=== PATIENT | female | born 1990 | race Caucasian/White ===

== ENCOUNTER 2016-12-29 14:27 | Emergency (ER) | payer OTHER ==
[~2016-12-29] VITALS: Ht 162.6 cm; Wt 63.6 kg
[2016-12-29 14:40] VITALS: BP 118/71
--- NOTE | 2016-12-29 15:45 | NUR ---
Patient ambulated to bed 6. RN evaluating patient at bedside.
--- NOTE | 2016-12-29 15:46 | NUR ---
26/F BIB SELF c/o umbilical region sharp/burning pain x yesterday non radiating water stools today, > 10 episodes and nausea as per pt. also c/o left ankle pain x1 wk, no recent injury. hx OF left ankle fx repair 2007 . SKIN IS PINK/WARM/DRY; AAOX4 WITH EVEN AND STEADY GAIT; LUNGS CLEAR BL; HR EVEN AND REGULAR; PT DENIES ANY FEVER, CP, SOB, OR COUGH AT THIS TIME; PATIENT STATES PAIN OF 8/10 AT THIS TIME; VSS; PATIENT POSITIONED FOR COMFORT; HOB ELEVATED; BEDRAILS UP X2; BED DOWN. ER MD MADE AWARE OF PT STATUS.
--- NOTE | 2016-12-29 15:47 | NUR ---
Dr. Gonzalez evaluating patient at bedside.
[2016-12-29] MEDS ORDERED: ONDANSETRON 4 MG ODT PO ONE (15:50)
[2016-12-29] MEDS ORDERED: DICYCLOMINE 20 MG/2 ML VIAL IM ONE (15:50)
[2016-12-29 16:18] LABS: ALBUMIN 3.8 g/dL (3.4-5.0); ANION GAP 9.1 (8-16); CALCIUM 8.9 mg/dL (8.5-10.1); CARBON DIOXIDE 29.7 mmol/L (21-32); CREATININE 0.6 mg/dL (0.6-1.3); POTASSIUM 3.8 mmol/L (3.5-5.1); TOTAL BILIRUBIN 0.5 mg/dL (0.0-1.0); TOTAL PROTEIN, SERUM 6.9 g/dL (6.4-8.2)
[2016-12-29 16:46] VITALS: BP 108/75
--- NOTE | 2016-12-29 16:46 | NUR ---
Patient discharged with v/s stable. Written and verbal after care instructions given and explained. Patient alert, oriented and verbalized understanding of instructions. Ambulatory with steady gait. All questions addressed prior to discharge. ID band removed. Patient advised to follow up with PMD. Rx of ELAINE & ROSALIA given. Patient educated on indication of medication including possible reaction and side effects. Opportunity to ask questions provided and answered.
== END 2016-12-29 16:46 | disposition home or self-care (01) ==
LOC: MED 14:27
DX: R10.33 Periumbilical pain (principal); R19.7 Diarrhea, unspecified; R11.0 Nausea
CPT/HCPCS: 36415; 80053; 81025; 83690; 96372; 99284; J0500; S0119

== ENCOUNTER 2019-01-17 16:34 | Emergency (ER) | payer SELFPAY ==
[~2019-01-17] VITALS: Ht 165.1 cm; Wt 71.2 kg
[2019-01-17 16:37] VITALS: BP 95/67
--- NOTE | 2019-01-17 16:55 | NUR ---
28/F c/o rash to hair line x1 day. Patient states she works at [employer] [facility] [facility] [employer] and there have been residents positive for scabies at facility.
[2019-01-17 17:32] VITALS: BP 95/67
--- NOTE | 2019-01-17 17:32 | NUR ---
Patient discharged with v/s stable. Written and verbal after care instructions given and explained. Patient alert, oriented and verbalized understanding of instructions. Ambulatory with steady gait. All questions addressed prior to discharge. ID band removed. Patient advised to follow up with PMD. Rx of Permethrin 5% topical cream given. Patient educated on indication of medication including possible reaction and side effects. Opportunity to ask questions provided and answered.
== END 2019-01-17 17:32 | disposition home or self-care (01) ==
LOC: MED 16:34
DX: R21 Rash and other nonspecific skin eruption (principal); L29.9 Pruritus, unspecified
CPT/HCPCS: 99282

== ENCOUNTER 2019-07-23 11:46 | Emergency (ER) | payer MEDICAID ==
[~2019-07-23] VITALS: Ht 165.1 cm; Wt 71.0 kg
[2019-07-23 11:54] VITALS: BP 130/83
[2019-07-23 12:44] LABS: APPEARANCE,URINE CLEAR (CLEAR); BILIRUBIN,URINE NEGATIVE (NEGATIVE); BLOOD, URINE TRACE-I (NEGATIVE); COLOR,URINE YELLOW (YELLOW); LEUKOCYTE ESTERASE ,URINE NEGATIVE (NEGATIVE); NITRITE, URINE NEGATIVE (NEGATIVE); UGLUCOSE NEGATIVE (NEGATIVE)
[2019-07-23 12:59] LABS: RBC,URINE 0-5 /HPF (0-5); WBC,URINE 0-5 /HPF (0-5)
--- NOTE | 2019-07-23 13:04 | NUR ---
Patient ambulated to bed 4. RN evaluating patient at bedside.
[2019-07-23 13:57] VITALS: BP 130/83
--- NOTE | 2019-07-23 13:58 | NUR ---
Patient discharged with v/s stable. Written and verbal after care instructions given and explained. Patient alert, oriented and verbalized understanding of instructions. Ambulatory with steady gait. All questions addressed prior to discharge. ID band removed. Patient advised to follow up with PMD. Rx of DIFLUCAN/MACROBID/CORTISONE given. Patient educated on indication of medication including possible reaction and side effects. Opportunity to ask questions provided and answered.
== END 2019-07-23 13:58 | disposition home or self-care (01) ==
LOC: MED 11:46
DX: L30.9 Dermatitis, unspecified (principal); N76.0 Acute vaginitis; B37.3 Candidiasis of vulva and vagina; N39.0 Urinary tract infection, site not specified
CPT/HCPCS: 81001; 81002; 81025; 99283

== ENCOUNTER 2020-01-29 19:10 | Emergency (ER) | payer SELFPAY ==
[~2020-01-29] VITALS: Ht 165.1 cm; Wt 76.2 kg
[2020-01-29 19:14] VITALS: BP 127/93
--- NOTE | 2020-01-29 19:19 | NUR ---
PT AMBULATED TO BED 1
--- NOTE | 2020-01-29 19:19 | NUR ---
Yoana rey in [facility] - 01/29/20 at 1925 by CHARLOTTE PT AMBULATED TO BED 8
[2020-01-29] MEDS ORDERED: KETOROLAC 30 MG/ML VIAL IM ONE (19:40)
--- NOTE | 2020-01-29 19:45 | NUR ---
29 Y/O F PRESENTS TO ED C/O LEFT THIGH PAIN X 1 DAY. PT STATES PAIN STARTED SUDDENLY. DENIE INJURIS, TRAUMA TO AFFECTED SITE. NO DEFORMITIES NOTED. DESCRIBED PAIN TO BE SHARP AND INTERMITTENT. VSS, BED LOCKED AND IN LOWEST POSITION, SIDE RAIL UP X1. WILL CONTINUE TO MONITOR. MHX: DENIES TRELL
[2020-01-29 19:58] VITALS: BP 127/93
== END 2020-01-29 19:58 | disposition home or self-care (01) ==
LOC: MED 19:10
DX: S76.912A Strain of unspecified muscles, fascia and tendons at thigh level, left thigh, initial encounter (principal); Z98.890 Other specified postprocedural states; X58.XXXA Exposure to other specified factors, initial encounter; Y93.89 Activity, other specified; Y92.89 Other specified places as the place of occurrence of the external cause; Y99.8 Other external cause status
CPT/HCPCS: 96372; 99283; J1885

== ENCOUNTER 2020-09-03 15:29 | Emergency (ER) | payer SELFPAY ==
[~2020-09-03] VITALS: Ht 165.1 cm; Wt 68.0 kg
[2020-09-03 15:46] VITALS: BP 114/79
[2020-09-03] MEDS ORDERED: KETOROLAC 30 MG/ML VIAL IVP ONE (16:10)
--- NOTE | 2020-09-03 16:10 | NUR ---
30 YEAR OLD FEMALE COMPLAINS OF ABDOMINAL PAIN. PT DENIES NAUSEA, VOMITTING, DIARRHEA. PT STATES SHE HAS HISTORY OF UMBILICAL HERNIA. PT AOX4, BREATHING EVEN AND UNLABORED, SKIN WARM AND DRY. BED IN LOWEST POSITION, LOCKED, BED RAIL UPX1. PMH - DENIES ALLERGIES - NKA
[2020-09-03 16:52] LABS: BASOPHILS # (AUTO) 0.1 K/uL (0.00-0.22); BASOPHILS % (AUTO) 0.7 % (0.0-2.0); EOSINOPHILS # (AUTO) 0.1 K/uL (0-0.4); EOSINOPHILS % (AUTO) 1.3 % (0.0-4.0); HEMOGLOBIN 13.4 g/dL (12.0-16.0); LYMPHOCYTES # (AUTO) 2.4 K/uL (2.5-16.5); LYMPHOCYTES % (AUTO) 22.5 % (20.5-51.1); MEAN CORPUSCULAR HEMOGLOBIN 30 pg (27-31); MEAN CORPUSCULAR HGB CONC 34 g/dL (33-37); MEAN CORPUSCULAR VOLUME 86.9 fL (80-94); MONOCYTES # (AUTO) 0.8 K/uL (0.8-1.0); MONOCYTES % (AUTO) 7.8 % (1.7-9.3); NEUTROPHILS # (AUTO) 7.2 K/uL (1.8-7.7); NEUTROPHILS % (AUTO) 67.7 % (42.2-75.2); PLATELET COUNT (AUTO) 381 K/uL (140-450); RED BLOOD CELL COUNT(AUTO) 4.49 MIL/uL (4.20-5.40); RED CELL DISTRIBUTION WIDTH 13.6 % (11.6-13.7); WHITE BLOOD COUNT (AUTO) 10.6 K/uL (4.8-10.8)
[2020-09-03 17:26] LABS: APPEARANCE,URINE CLEAR (CLEAR); BILIRUBIN,URINE NEGATIVE (NEGATIVE); BLOOD, URINE TRACE-I (NEGATIVE); COLOR,URINE YELLOW (YELLOW); LEUKOCYTE ESTERASE ,URINE 1+ (NEGATIVE); NITRITE, URINE NEGATIVE (NEGATIVE); UGLUCOSE NEGATIVE (NEGATIVE)
--- NOTE | 2020-09-03 17:30 | NUR ---
PT ALERT AND AWAKE, BREATHING EVEN AND UNLABORED. NO DISTRESS NOTED
[2020-09-03 17:32] LABS: ALBUMIN 3.9 g/dL (3.4-5.0); CREATININE 0.7 mg/dL (0.6-1.3); POTASSIUM 3.5 mmol/L (3.5-5.1); TOTAL BILIRUBIN 0.1 mg/dL (0.0-1.0)
[2020-09-03 17:44] LABS: ANION GAP 12.1 (8-16); CARBON DIOXIDE 26.4 mmol/L (21-32)
[2020-09-03] MEDS ORDERED: ACET-8386 PO (18:16)
[2020-09-03] MEDS ORDERED: CIPR500T4 PO (18:16)
[2020-09-03] MEDS ORDERED: DOCU-299 PO (18:16)
[2020-09-03 18:26] VITALS: BP 128/65
--- NOTE | 2020-09-03 18:27 | NUR ---
Patient discharged with v/s stable. Written and verbal after care instructions about constipation, UTI, umbilical hernia given and explained. Patient alert, oriented and verbalized understanding of instructions. Ambulatory with steady gait. All questions addressed prior to discharge. ID band removed. Patient advised to follow up with PMD. Rx of norco, cipro, colace given. Patient educated on indication of medication including possible reaction and side effects, understands not to drive on [place]. Opportunity to ask questions provided and answered.
[2020-09-03 18:43] LABS: RBC,URINE 0-5 /HPF (0-5); WBC,URINE 0-5 /HPF (0-5)
== END 2020-09-03 18:27 | disposition home or self-care (01) ==
LOC: MED 15:29
DX: N39.0 Urinary tract infection, site not specified (principal); K59.00 Constipation, unspecified; K46.9 Unspecified abdominal hernia without obstruction or gangrene
CPT/HCPCS: 36415; 74176; 80053; 81001; 81025; 83690; 85025; 87086; 96374; 99284; J1885

== ENCOUNTER 2022-03-01 09:26 | Emergency (ER) | payer SELFPAY ==
[~2022-03-01] VITALS: Ht 165.1 cm; Wt 75.5 kg
[~2022-03-01 09:26] MED LIST: ACET-8386 PO; CIPR500T4 PO; DOCU-299 PO
[2022-03-01 09:31] VITALS: BP 123/80
--- NOTE | 2022-03-01 09:37 | NUR ---
Pt ambulated to bed 04.
[2022-03-01] MEDS ORDERED: OMEP40EC24 PO (09:59)
[2022-03-01] MEDS ORDERED: LORA10TA19 PO (09:59)
--- NOTE | 2022-03-01 10:04 | NUR ---
Patient discharged with v/s stable. Written and verbal after care instructions given and explained. Patient alert, oriented and verbalized understanding of instructions. Ambulatory with steady gait. All questions addressed prior to discharge. ID band removed. Patient advised to follow up with PMD. Rx of prilosec, given. Patient educated on indication of medication including possible reaction and side effects. Opportunity to ask questions provided and answered.
== END 2022-03-01 10:04 | disposition home or self-care (01) ==
LOC: MED 09:26
DX: K29.70 Gastritis, unspecified, without bleeding (principal); K42.9 Umbilical hernia without obstruction or gangrene; R21 Rash and other nonspecific skin eruption; Z98.890 Other specified postprocedural states
CPT/HCPCS: 99283

== ENCOUNTER 2022-12-22 17:52 | Emergency (ER) | payer MEDICAID, OTHER ==
[~2022-12-22] VITALS: Ht 165.1 cm; Wt 68.0 kg
[~2022-12-22 17:52] MED LIST changes: -ACET-8386 PO; +ACET-8905 PO; +LORA10TA19 PO; +OMEP40EC24 PO
[2022-12-22 18:07] VITALS: BP 131/87; PULSE 123; RESP 22; TEMP 101.7; O2SAT 97
[2022-12-22] MEDS ORDERED: NACL 0.9% 1,000 ML IV ONE (19:00)
[2022-12-22] MEDS ORDERED: ACETAMINOPHEN EXTRA STRENGTH 500 MG TAB PO ONE (19:00)
[2022-12-22] MEDS ORDERED: KETOROLAC 30 MG/ML VIAL IM ONE (19:00)
[2022-12-22 19:18] LABS: BASOPHILS # (AUTO) 0.1 K/uL (0.00-0.22); BASOPHILS % (AUTO) 0.4 % (0.0-2.0); EOSINOPHILS % (AUTO) 0.1 % (0.0-4.0); HEMATOCRIT 38.6 % (36-48); LYMPHOCYTES # (AUTO) 1.6 K/uL (2.5-16.5); MEAN CORPUSCULAR HEMOGLOBIN 29 pg (27-31); MEAN CORPUSCULAR HGB CONC 34 g/dL (33-37); MEAN CORPUSCULAR VOLUME 85.6 fL (80-94); MONOCYTES # (AUTO) 1.8 K/uL (0.8-1.0); MONOCYTES % (AUTO) 12.4 % (1.7-9.3); NEUTROPHILS # (AUTO) 11.4 K/uL (1.8-7.7); NEUTROPHILS % (AUTO) 76.1 % (42.2-75.2); PLATELET COUNT (AUTO) 385 K/uL (140-450); RED BLOOD CELL COUNT(AUTO) 4.51 MIL/uL (4.20-5.40); RED CELL DISTRIBUTION WIDTH 13.6 % (11.6-13.7); WHITE BLOOD COUNT (AUTO) 14.9 K/uL (4.8-10.8)
[2022-12-22 19:22] LABS: APPEARANCE,URINE CLEAR (CLEAR); BILIRUBIN,URINE NEGATIVE (NEGATIVE); BLOOD, URINE 2+ (NEGATIVE); COLOR,URINE YELLOW (YELLOW); LEUKOCYTE ESTERASE ,URINE 1+ (NEGATIVE); NITRITE, URINE NEGATIVE (NEGATIVE); UGLUCOSE NEGATIVE (NEGATIVE)
[2022-12-22 19:33] LABS: ALBUMIN 3.7 g/dL (3.4-5.0); ANION GAP 9.3 (8-16); CARBON DIOXIDE 29.7 mmol/L (21-32); CREATININE 0.8 mg/dL (0.6-1.3); TOTAL BILIRUBIN 0.5 mg/dL (0.0-1.0)
[2022-12-22 19:35] LABS: RBC,URINE 0-5 /HPF (0-5)
--- NOTE | 2022-12-22 20:29 | NUR ---
pt to chair B
[2022-12-22] MEDS ORDERED: ACETAMINOPHEN EXTRA STRENGTH 500 MG TAB ONE (20:32)
[2022-12-22] MEDS ORDERED: KETOROLAC 30 MG/ML VIAL ONE (20:32)
[2022-12-22] MEDS ORDERED: POTASSIUM CHLORIDE 10 MEQ TABER PO ONE ×2 (21:45)
--- NOTE | 2022-12-22 21:51 | NUR ---
Per Irene Resendiz RN, NaCl 0.9 1L started at 2050 and stopped at 2150. ED director aware.
[2022-12-22] MEDS ORDERED: IBUP-2213 PO (22:21)
[2022-12-22] MEDS ORDERED: CEPH-588 PO (22:21)
[2022-12-22] MEDS ORDERED: ONDA-188 SL (22:21)
[2022-12-22 22:28] VITALS: BP 110/68; PULSE 80; RESP 16; TEMP 98.8; O2SAT 97
--- NOTE | 2022-12-22 22:28 | NUR ---
Patient discharged with v/s stable. Written and verbal after care instructions given and explained. Patient alert, oriented and verbalized understanding of instructions. Ambulatory with steady gait. All questions addressed prior to discharge. ID band removed. Patient advised to follow up with PMD. Rx of KEFLEX, MOTRIN, ZOFRAN given. Patient educated on indication of medication including possible reaction and side effects. Opportunity to ask questions provided and answered.
== END 2022-12-22 22:28 | disposition home or self-care (01) ==
LOC: MED 17:52
DX: R11.10 Vomiting, unspecified (principal); R19.7 Diarrhea, unspecified; N39.0 Urinary tract infection, site not specified; E86.0 Dehydration; E87.1 Hypo-osmolality and hyponatremia; E87.6 Hypokalemia; K21.9 Gastro-esophageal reflux disease without esophagitis; Z79.899 Other long term (current) drug therapy; Z20.822 Contact with and (suspected) exposure to COVID-19
CPT/HCPCS: 36415; 80053; 81001; 81025; 83690; 85025; 87086; 87426; 87804; 96360; 96372; 99283; J1885; J7030

== ENCOUNTER 2024-02-13 13:42 | Emergency (ER) | payer OTHER ==
[~2024-02-13] VITALS: Ht 165.1 cm; Wt 68.0 kg
[~2024-02-13 13:42] MED LIST changes: +CEPH-588 PO; +IBUP-2213 PO; +ONDA-188 SL
[2024-02-13 14:17] VITALS: BP 123/85; PULSE 90; RESP 22; TEMP 98.7; O2SAT 99
[2024-02-13] MEDS ORDERED: cefTRIAXone 500 MG VIAL ONE (14:57)
[2024-02-13] MEDS ORDERED: LIDOCAINE MPF 1% 5 ML ONE (14:58)
[2024-02-13] MEDS ORDERED: RALT400T PO (14:59)
[2024-02-13] MEDS ORDERED: EMTR1TAB12 PO (14:59)
[2024-02-13] MEDS ORDERED: DOXY-22 PO (14:59)
[2024-02-13] MEDS: cefTRIAXone 500 MG in LIDOCAINE MPF 1% 1 ML IM ONE (15:00)
[2024-02-13 15:30] VITALS: BP 123/85; PULSE 90; RESP 22; TEMP 98.7; O2SAT 99
== END 2024-02-13 15:30 | disposition home or self-care (01) ==
LOC: MED 13:42
DX: Z11.3 Encounter for screening for infections with a predominantly sexual mode of transmission (principal); Z20.6 Contact with and (suspected) exposure to human immunodeficiency virus [HIV]; R03.0 Elevated blood-pressure reading, without diagnosis of hypertension; K21.9 Gastro-esophageal reflux disease without esophagitis; Z79.899 Other long term (current) drug therapy
CPT/HCPCS: 81025; 86703; 87491; 96372; 99283; J0696; J2001